=== PATIENT | male | born 1960 | race Caucasian/White ===

== ENCOUNTER 2017-04-12 10:15 | Outpatient (CLI) | payer OTHER ==
--- NOTE | 2017-04-12 14:32 | Ultrasound Report ---
ULTRASOUND ABDOMEN LIMITED: TECHNIQUE: Transabdominal ultrasound with color Doppler interrogation. HISTORY: right upper quadrant abdominal pain. COMPARISON: none. FINDINGS: LIVER: Normal. BILIARY SYSTEM: There is scattered polyps along the anterior gallbladder wall measuring up to 5 mm. No evidence for shadowing gallstones, gallbladder wall thickening or pericholecystic fluid. The CBD measures 3.3 mm. PANCREAS: Normal. RIGHT KIDNEY: The right kidney is normal size measuring 9.5 cm. There is mild increased echotexture of the right kidney consistent with nonspecific renal parenchymal disease. PROXIMAL AORTA: Normal. ASCITES: None. IMPRESSION: No evidence for cholelithiasis. A few small gallbladder polyps are identified. Slightly echogenic right kidney consistent with nonspecific renal parenchymal disease.
== END 2017-04-12 10:16 | disposition home or self-care (01) ==
LOC: US 10:15
PROVIDERS: ATTEND General Practice
DX: K82.4 Cholesterolosis of gallbladder (principal)
CPT/HCPCS: 76705

== ENCOUNTER 2019-02-16 09:33 | Emergency (ER) | payer SELFPAY ==
[2019-02-16 09:39] VITALS: BP 108/67
[2019-02-16 10:23] LABS: Bilirubin,Urine NEG (Negative); Blood,Urine SM (Negative); Color,Urine Yellow (Yellow); Mucus,Urine 3+ /HPF; Protein,Urine <15 mg/dL mg/dL (Negative); Urobilinogen,Urine < 2.0 mg/dL (<2.0)
[2019-02-16 10:48] LABS: Basophils % (Auto) 0.2 % (0.0-1.8); Hematocrit 47.1 % (35.5-45.6); Hemoglobin 15.8 gm/dl (11.8-15.2); Lymphocytes # (Auto) 0.6 K/mm3 (1.2-5.4); Lymphocytes % (Auto) 5.9 % (13.4-35.0); Mean Corpuscular HGB Conc 33 % (32-34); Mean Corpuscular Volume 90 fl (84-94); Monocytes # (Auto) 0.4 K/mm3 (0.0-0.8); Monocytes % (Auto) 4.1 % (0.0-7.3); Platelet Count 183 K/mm3 (140-440); Red Blood Count 5.25 M/mm3 (3.65-5.03); Red Cell Distribution Width 13.8 % (13.2-15.2)
[2019-02-16 11:52] LABS: Alanine Aminotransferase 40 units/L (7-56); Albumin 4.4 g/dL (3.9-5); BUN/Creatinine Ratio 16; Blood Urea Nitrogen 13 mg/dL (9-20); Calcium 9.5 mg/dL (8.4-10.2); Hemolysis Index 19
[2019-02-16] MEDS ORDERED: MORPHINE 4 MG/1 ML INJ IV ONE (12:15)
[2019-02-16] MEDS ORDERED: SODIUM CHLORIDE 0.9% 1000 ML 1,000 ML IV ONE (12:15)
[2019-02-16] MEDS ORDERED: ONDANSETRON 4 MG/2 ML INJ IV ONE (12:15)
--- NOTE | 2019-02-16 12:20 | Emergency Department Report ---
ED Abdominal Pain HPI - General Chief Complaint: Abdominal Pain Stated Complaint: ABD PAIN Time Seen by Provider: 02/16/19 11:52 Source: patient Mode of arrival: Ambulatory Limitations: No Limitations - History of Present Illness Initial Comments: patient is a 58-year-old male presents emergency room with complaints of left lower quadrant abdominal pain that began last night. He has associated diarrhea. He denies any vomiting, fever, hematochezia, melena, pus in the stool. He denies any past medical history. He denies any daily medications. He denies any allergies medications. He denies any abdominal surgeries. - Related Data Previous Rx's Medication Instructions Recorded Last Taken Type Dicyclomine [Bentyl] 20 mg PO Q8HR PRN #12 tablet 02/16/19 Unknown Rx Ondansetron [Zofran Odt] 4 mg PO Q8HR PRN #12 tab.rapdis 02/16/19 Unknown Rx traMADoL [Ultram 50 MG tab] 50 mg PO Q6HR PRN #7 tablet 02/16/19 Unknown Rx Allergies Allergy/AdvReac Type Severity Reaction Status Date / Time No Known Allergies Allergy Unverified 04/12/17 10:16 ED Review of Systems ROS: Stated complaint: ABD PAIN Other details as noted in HPI Comment: All other systems reviewed and negative ED Past Medical Hx - Past Medical History Previous Medical History?: No - Surgical History Past Surgical History?: No - Social History Smoking Status: Never Smoker Substance Use Type: None - Medications Home Medications: Home Medications Medication Instructions Recorded Confirmed Last Taken Type Dicyclomine [Bentyl] 20 mg PO Q8HR PRN #12 tablet 02/16/19 Unknown Rx Ondansetron [Zofran Odt] 4 mg PO Q8HR PRN #12 tab.rapdis 02/16/19 Unknown Rx traMADoL [Ultram 50 MG tab] 50 mg PO Q6HR PRN #7 tablet 02/16/19 Unknown Rx ED Physical Exam - General Limitations: No Limitations General appearance: alert, in no apparent distress - Head Head exam: Present: atraumatic, normocephalic - Eye Eye exam: Present: normal appearance - ENT ENT exam: Present: mucous membranes moist - Respiratory Respiratory exam: Present: normal lung sounds bilaterally. Absent: respiratory distress, wheezes, rales, rhonchi, stridor, chest wall tenderness, accessory muscle use, decreased breath sounds, prolonged expiratory - Cardiovascular Cardiovascular Exam: Present: regular rate, normal rhythm, normal heart sounds. Absent: systolic murmur, diastolic murmur, rubs, gallop - GI/Abdominal GI/Abdominal exam: Present: soft, tenderness (LLQ), normal bowel sounds. Absent: distended, guarding, rebound, rigid - Neurological Exam Neurological exam: Present: alert, oriented X3 - Psychiatric Psychiatric exam: Present: normal affect, normal mood - Skin Skin exam: Present: warm, dry, intact ED Course Vital Signs 02/16/19 09:38 Temperature 98.6 F Pulse Rate 80 Respiratory 18 Rate Blood Pressure 108/67 O2 Sat by Pulse 99 Oximetry ED Medical Decision Making - Lab Data Result diagrams: 02/16/19 10:11 02/16/19 10:11 Lab Results 02/16/19 02/16/19 02/16/19 Range/Units 10:03 10:11 10:11 WBC 10.2 (4.5-11.0) K/mm3 RBC 5.25 H (3.65-5.03) M/mm3 Hgb 15.8 H (11.8-15.2) gm/dl Hct 47.1 H (35.5-45.6) % MCV 90 (84-94) fl MCH 30 (28-32) pg MCHC 33 (32-34) % RDW 13.8 (13.2-15.2) % Plt Count 183 (140-440) K/mm3 Lymph % (Auto) 5.9 L (13.4-35.0) % Johnson % (Auto) 4.1 (0.0-7.3) % Eos % (Auto) 0.0 (0.0-4.3) % Baso % (Auto) 0.2 (0.0-1.8) % Lymph # 0.6 L (1.2-5.4) K/mm3 Johnson # 0.4 (0.0-0.8) K/mm3 Eos # 0.0 (0.0-0.4) K/mm3 Baso # 0.0 (0.0-0.1) K/mm3 Seg Neutrophils % 89.8 H (40.0-70.0) % Seg Neutrophils # 9.2 H (1.8-7.7) K/mm3 Sodium 133 L (137-145) mmol/L Potassium 3.6 (3.6-5.0) mmol/L Chloride 96.8 L (98-107) mmol/L Carbon Dioxide 20 L (22-30) mmol/L Anion Gap 20 mmol/L BUN 13 (9-20) mg/dL Creatinine 0.8 (0.8-1.5) mg/dL Estimated GFR > 60 ml/min BUN/Creatinine Ratio 16 % Glucose 124 H (75-100) mg/dL Calcium 9.5 (8.4-10.2) mg/dL Total Bilirubin 0.70 (0.1-1.2) mg/dL AST 27 (5-40) units/L ALT 40 (7-56) units/L Alkaline Phosphatase 99 (35-129) units/L Total Protein 7.5 (6.3-8.2) g/dL Albumin 4.4 (3.9-5) g/dL Albumin/Globulin Ratio 1.4 % Urine Color Yellow (Yellow) Urine Turbidity Clear (Clear) Urine pH 5.0 (5.0-7.0) Ur Specific [place] 1.025 (1.003-1.030) Urine Protein <15 mg/dl (Negative) mg/dL Urine Glucose (UA) Neg (Negative) mg/dL Urine Ketones Neg (Negative) mg/dL Urine Blood Sm (Negative) Urine Nitrite Neg (Negative) Urine Bilirubin Neg (Negative) Urine Urobilinogen < 2.0 (<2.0) mg/dL Ur Leukocyte Esterase Neg (Negative) Urine WBC (Auto) 2.0 (0.0-6.0) /HPF Urine RBC (Auto) 3.0 (0.0-6.0) /HPF Urine Mucus 3+ /HPF - Radiology Data Radiology results: report reviewed CT ABDOMEN AND PELVIS WITH CONTRAST INDICATION / CLINICAL INFORMATION: LLQ pain, diarrhea. TECHNIQUE: Axial CT images were obtained through the abdomen and pelvis after 100 mL Omnipaque [address] scans at this location are performed using CT dose reduction for ALARA by means of automated exposure control. COMPARISON: None available. FINDINGS: LOWER CHEST: Evaluation is somewhat limited by respiratory motion artifact. No significant abnormality is detected. LIVER: There are a couple of homogeneously hypoattenuating lesions in the left and right lobes, each measuring about 6 mm in greatest dimension, too small for complete characterization but s tatistically likely represent simple cysts. No other significant abnormality in the liver. BILIARY SYSTEM: No significant abnormality. PANCREAS: No significant abnormality. SPLEEN: No significant abnormality. ADRENALS: No significant abnormality. KIDNEYS and URETERS: No significant abnormality. STOMACH / BOWEL: No significant abnormality. Normal appendix is seen. PERITONEUM: No free fluid. No free air. No fluid collection. LYMPH NODES: No adenopathy. VASCULAR STRUCTURES: No significant abnormality. URINARY BLADDER: No significant abnormality. REPRODUCTIVE ORGANS: No significant abnormality. ADDITIONAL FINDINGS: None. SKELETAL SYSTEM: No significant abnormality. IMPRESSION: 1. No significant abnormality. Signer Name: Kole Sidhu MD Signed: 02/16/2019 3:31 PM Workstation Name: [id number] Transcribed By: FLOR Dictated By: Kole Sidhu MD Electronically Authenticated By: Kole Sidhu MD Signed Date/Time: 02/16/19 1531 DD/ 1526 TD/TT: - Medical Decision Making patient is a 58-year-old male presents emergency room with complaints of left lower quadrant abdominal pain that began last night. He has associated diarrhea. He denies any vomiting, fever, hematochezia, melena, pus in the stool . He denies any past medical history. He denies any daily medications. He denies any allergies medications. He denies any abdominal surgeries. vitals are normal. labs with mild dehydration otherwise stable. CT abd pelvis 1. No significant abnormality. pt given 1 L of fluid, Zofran, morphine and symptoms improved. Patient given prescription for Zofran, tramadol, bentyl. will have pt follow up with a GI doctor for further evaluation and management. advised pt to please take medication as prescribed. Do not drive or operate machinery while taking pain medication. Increase your fluid intake over the next several days. Follow-up with a primary care doctor in a GI doctor in the next 2-3 days. Return to the emergency room for any new or worsening symptoms. - Differential Diagnosis colitis, diverticulitis, obstruction, constipation, gastritis, mass Critical care attestation.: If time is entered above; I have spent that time in minutes in the direct care of this critically ill patient, excluding procedure time. ED Disposition Clinical Impression: Liver cyst Abdominal pain Qualifiers: Abdominal location: left lower quadrant Qualified Code(s): R10.32 - Left lower quadrant pain Diarrhea Qualifiers: Diarrhea type: unspecified type Qualified Code(s): R19.7 - Diarrhea, unspecified Disposition: TO HOME OR SELFCARE Is pt being admited?: No Does the pt Need Aspirin: No Condition: Stable Instructions: Abdominal Pain (ED) Additional Instructions: please take medication as prescribed. Do not drive or operate machinery while taking pain medication. Increase your fluid intake over the next several days. Follow-up with a primary care doctor in a GI doctor in the next 2-3 days. Return to the emergency room for any new or worsening symptoms. Prescriptions: Dicyclomine [Bentyl] 20 mg PO Q8HR PRN #12 tablet PRN Reason: abdominal cramping traMADoL [Ultram 50 MG tab] 50 mg PO Q6HR PRN #7 tablet PRN Reason: Pain , Severe (7-10) Ondansetron [Zofran Odt] 4 mg PO Q8HR PRN #12 tab.rapdis PRN Reason: Nausea And Vomiting Referrals: PRIMARY CARE, [Primary Care Provider] - 2-3 Days [facility] [Provider Group] - 2-3 Days Time of Disposition: 15:41 Print Language: MALAGASY
--- NOTE | 2019-02-16 15:35 | Cat Scan Report ---
CT ABDOMEN AND PELVIS WITH CONTRAST INDICATION / CLINICAL INFORMATION: LLQ pain, diarrhea. TECHNIQUE: Axial CT images were obtained through the abdomen and pelvis after 100 mL Omnipaque [address] scans at this location are performed using CT dose reduction for ALARA by means of automated exposure control. COMPARISON: None available. FINDINGS: LOWER CHEST: Evaluation is somewhat limited by respiratory motion artifact. No significant abnormalit y is detected. LIVER: There are a couple of homogeneously hypoattenuating lesions in the left and right lobes, each measuring about 6 mm in greatest dimension, too small for complete characterization but statistically likely represent simple cysts. No other significant abnormality in the liver. BILIARY SYSTEM: No significant abnormality. PANCREAS: No significant abnormality. SPLEEN: No significant abnormality. ADRENALS: No significant abnormality. KIDNEYS and URETERS: No significant abnormality. STOMACH / BOWEL: No significant abnormality. Normal appendix is seen. PERITONEUM: No free fluid. No free air. No fluid collection. LYMPH NODES: No adenopathy. VASCULAR STRUCTURES: No significant abnormality. URINARY BLADDER: No significant abnormality. REPRODUCTIVE ORGANS: No significant abnormality. ADDITIONAL FINDINGS: None. SKELETAL SYSTEM: No significant abnormality. IMPRESSION: 1. No significant abnormality. Signer Name: Kole Sidhu MD Signed: 02/16/2019 3:31 PM Workstation Name: [id number]
== END 2019-02-16 15:54 | disposition home or self-care (01) ==
LOC: ED 09:33
DX: K76.89 Other specified diseases of liver (principal)
CPT/HCPCS: 36415; 74177; 80053; 81001; 85025; 96361; 96374; 96375; 99284; J2270; J2405; J7030; Q9967